=== PATIENT | female | born 1990 | race Hispanic/Latino ===

== ENCOUNTER 2018-06-06 02:43 | Emergency (ER) | payer SELFPAY ==
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
[2018-06-06 03:19] LABS: Absolute Lymphocytes (CBC) 5.2 K/uL (0.7-4.9); Absolute Monocytes 1.1 K/uL (0.1-1.3); Absolute Neutrophil 12.8 K/uL (1.8-8.0); Basophils % 0.3 % (0-1.3); Eosinophils % 0.4 % (0-4.4); Hematocrit 34.7 % (36.0-45.0); Lymphocytes % 27.1 % (15.3-44.8); MPV 8.8 fL (7.6-11.3); Monocytes % 5.8 % (3.3-12.3); RBC Red Blood Cell Count 3.68 M/uL (3.86-4.86)
[2018-06-06] MEDS ORDERED: CEFAZOLIN 2GM (PREMIX IV) 2 GM/50 ML BAG ONE (03:27)
[2018-06-06] MEDS ORDERED: NA CHLORIDE 0.9% 1,000 ML ONE ×2 (03:27→04:48)
[2018-06-06 03:28] LABS: Potassium 3.6 mmol/L (3.5-5.1)
[2018-06-06] MEDS ORDERED: CLINDAMYCIN 900MG/D5W 900 MG/50 ML IVPB IV ONE (04:06)
[2018-06-06] MEDS ORDERED: ONDANSETRON 4 MG/2 ML VIAL ONE (04:06)
[2018-06-06] MEDS ORDERED: LEVETIRACETAM 500 MG/5 ML VIAL IV ONE (04:32)
[2018-06-06] MEDS ORDERED: NA CHLORIDE 0.9% 100 ML IV ONE (04:32)
[2018-06-06 05:05] LABS: Urine Blood 2+ (NEG); Urine Glucose NEGATIVE (NEG); Urine Protein 1+ (NEG)
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
== END 2018-06-06 04:52 | disposition short-term general hospital (02) ==
LOC: ER 02:43
DX: S06.0X1A Concussion with loss of consciousness of 30 minutes or less, initial encounter (principal); S02.80XA Fracture of other specified skull and facial bones, unspecified side, initial encounter for closed fracture; S01.80XA Unspecified open wound of other part of head, initial encounter; S01.411A Laceration without foreign body of right cheek and temporomandibular area, initial encounter; S02.400A Malar fracture, unspecified side, initial encounter for closed fracture; S02.40DA Maxillary fracture, left side, initial encounter for closed fracture; S02.40CA Maxillary fracture, right side, initial encounter for closed fracture; S02.40FA Zygomatic fracture, left side, initial encounter for closed fracture; S02.2XXA Fracture of nasal bones, initial encounter for closed fracture; S02.0XXA Fracture of vault of skull, initial encounter for closed fracture; V03.90XA Pedestrian on foot injured in collision with car, pick-up truck or van, unspecified whether traffic or nontraffic accident, initial encounter; G93.89 Other specified disorders of brain; R40.2412 Glasgow coma scale score 13-15, at arrival to emergency department
CPT/HCPCS: 36415; 70450; 70486; 71045; 71250; 72125; 72170; 76377; 80048; 81003; 81025; 85025; 86850; 86900; 86901; 87086; 87088; 99285; J0690; J1953; J2405; J7030; Q9967